=== PATIENT | female | born 1935 | race Caucasian/White ===

== ENCOUNTER 2016-07-24 22:25 | Emergency (ER) | payer OTHER, MEDICARE ==
[~2016-07-24] VITALS: Ht 160 cm; Wt 59.0 kg
--- NOTE | 2016-07-24 23:41 | ED DYSPNEA/ASTHMA COMPLAINT ---
History of Present Illness General Chief Complaint: Dyspnea (COPD, CHF, Other) Stated Complaint: DIFF BREATHING Source: patient Exam Limitations: no limitations Vital Signs & Intake/Output Vital Signs & Intake/Output Vital Signs Date Time Temp Pulse Resp B/P Pulse O2 O2 Flow FiO2 Ox Delivery Rate 07/25 0031 97.5 87 20 174/77 98 Nasal 1.0L Cannula 07/25 0027 97 Nasal 2.0L Cannula 07/24 2251 92 Room Air 07/24 2229 98.2 104 20 178/76 92 Room Air ED Intake and Output 07/25 0000 07/24 1200 Intake Total 0 Output Total Balance 0 Intake, Oral 0 Patient 130 lb Weight Allergies Coded Allergies: No Known Allergies (07/24/16) Triage Note: PT TO ED C/O PRODUCTIVE COUGH, FATIGUE FOR 4 DAYS. O2 SAT 92% ON RA IN TRIAGE. FORMER SMOKER. 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 Triage Nurses Notes Reviewed? yes HPI: Pt presents for eval of dypsnea and cough that began about 2-3 days ago. In addition she has been feeling a soreness in the chest but had a fever yesterday. She has also had a white cream phlegm production. She traveled up from [place] in mid June and states she just hasn't felt right since. She denies any leg pain or leg swelling or orthopnea. There are no known ill contacts and the patient denies travel outside the country. Symptoms worsened with exertion and nothing seems to make her feel better at this point. She is an ex smoker having quit in 1984. Past History Travel History Traveled to [place] past 21 day No Medical History Any Pertinent Medical History? see below for history Neurological: CVA, dementia Cardiovascular: hypertension Endocrine: hypothyroidism Surgical History Surgical History: non-contributory Psychosocial History What is your primary language Nepali Tobacco Use: Quit >30 days ago Family History Hx Contributory? No Review of Systems Review of Systems Constitutional: Reports: no symptoms. EENTM: Reports: no symptoms. Respiratory: Reports: see HPI. Cardiovascular: Reports: chest pain. GI: Reports: no symptoms. Genitourinary: Reports: no symptoms. Musculoskeletal: Reports: no symptoms. Skin: Reports: no symptoms. Neurological/Psychological: Reports: no symptoms. Hematologic/Endocrine: Reports: no symptoms. Immunologic/Allergic: Reports: no symptoms. All Other Systems: Reviewed and Negative Physical Exam Physical Exam Respiratory: see below Comments: Gen.: Well-nourished, well-developed, while to moderate respiratory distress. Head: Normocephalic, atraumatic. Eyes: Normal inspection bilaterally Ears: Normal inspection bilaterally Nose: Normal inspection Throat/mouth : Moist mucosa Neck: Supple, full range of motion, no goiter Heart: Regular rate and rhythm, no murmurs rubs or gallops Lungs: Globally decreased breath sounds with scattered wheezing and "groans" Chest: Nontender Back: Normal range of motion Abdomen: Soft, nontender, nondistended, normal bowel sounds Extremities: Normal range of motion grossly, equal radial pulses, no cyanosis clubbing or edema, calves nontender Neurologic: Cranial nerves grossly intact, speech is clear Skin: warm and dry Psychiatric: Calm, cooperative, no apparent delusions or hallucinations Core Measures ACS in differential dx? No Severe Sepsis Present: No Septic Shock Present: No Progress Differential Diagnosis: asthma, bronchitis, CHF, COPD, pneumonia Plan of Care: Orders Procedure Date/time Status Telemetry/Bpm Solution Architect 07/24 2328 Active TROPONIN LEVEL 07/24 2328 Complete MAGNESIUM 07/24 2328 Complete CBC WITHOUT DIFFERENTIAL 07/24 2328 Complete B-TYPE NATRIURETIC PEP (BNP) 07/24 2328 Complete BASIC METABOLIC PANEL 07/24 2328 Complete EKG 07/24 2328 Active Laboratory Tests 07/24/162346: CBC w Diff NO MAN DIFF REQ, RBC 4.28, MCV 89.0, MCH 29.4, RDW 13.7, MPV 10.6 H, Gran % 78.6 H, Lymphocytes % 11.1 L, Monocytes % 9.1, Eosinophils % 1.1, Basophils % 0.1, Absolute Granulocytes 5.0, Absolute Lymphocytes 0.7 L, Absolute Monocytes 0.6, Absolute Eosinophils 0.1, Absolute Basophils 0, PUBS MCHC 33.0 07/24/163: Anion Gap 8, Estimated GFR 53 L, BUN/Creatinine Ratio 21.0, Glucose 154 H, Calcium 9.7, Magnesium 1.7, Troponin I 0.03, Ldk-N-Ypsikybvviq Pept 689 H Diagnostic Imaging: Discussed w/RAD: Radiology Read. CXR Impression: PATIENT: REMY ZUNIGA PRESENT AGE: 81 PATIENT ACCOUNT NO: [id number] : 35 LOCATION: [facility] ORDERING PHYSICIAN: KAYLYN GUADALUPE MD SERVICE DATE: 07/24/16 EXAM TYPE: RAD - XRY-PORTABLE CHEST XRAY EXAMINATION: XR PORTABLE CHEST CLINICAL INFORMATION: CHF/COPD/ effusion. COMPARISON: None. TECHNIQUE: Portable view of the chest was obtained. FINDINGS: There is central vascular congestion without overt edema. No focal consolidation, pleural effusion, or pneumothorax. Cardiac silhouette size is normal. There are no acute osseous findings. IMPRESSION: Central vascular congestion without overt edema. No focal pneumonia. DICTATED BY: KAYLYN GREEN MD DATE/TIME DICTATED:07/25/1626 WATER SAFETY TEACHER:NARGIS DATE/TIME TRANSCRIBED:07/25/1626 CONFIDENTIAL, DO NOT COPY WITHOUT APPROPRIATE AUTHORIZATION. <Electronically signed in Other Vendor System> SIGNED BY: KAYLYN GREEN MD 07/25/1631 Initial ED EKG: NSR, rate (91), no ST T wave changes Comments: 07/25/2016 12:55:05 AM I have updated Remy on her test results. I have taken her off her oxygen and I will observe her over the next 15 minutes or so for any hypoxia. He is also somewhat tachycardic after her nebulizer treatment but her heart rate seems to be improving as well. Ultimately we will check an ambulatory pulse ox on her. She denies any known history of heart disease including congestive heart failure but her chest x-ray shows some increased vascular congestion. I will discuss the possibility of a short course of Lasix. 07/25/2016 2:30:48 AM Remy appears comfortable at this point with a normal oxygen saturation on room air. Her heart rate is now essentially normal as well. We will check an ambulatory pulse ox and unless she becomes hypoxic with ambulation I feel she is stable for discharge. she agrees. Departure Departure Disposition: HOME OR SELF CARE Condition: Stable Clinical Impression Primary Impression: Dyspnea Qualifiers: Dyspnea type: unspecified Qualified Code: R06.00 - Dyspnea, unspecified Referrals: PATIENT HAS NO PRIMARY CARE DR (PCP/Family) Additional Instructions: albuterol inhaler as needed for cough or trouble breathing. robitussin ac as needed for cough or cold symptoms. if you have a fever or productive cough, begin the Z Howie prescription. since your chest xray showed prominent venous pattern, take lasix for 2 days. potassium supplement to prevent low potassium. follow up with a primary care doctor (see MDs listed) or hotel attendant (dr banegas) arnaldo. return if any concerns or worsening. Departure Forms: Customer Survey General Discharge Information Prescriptions: Current Visit Scripts Albuterol Sulfate (Proair Hfa) 2-4 INH INH Q6P PRN cough or breathing #1 INHAL Azithromycin (Zithromax) 1 DP PO AD #6 TAB 2 the first day followed by 1 for days 2-5 Furosemide (Lasix) 1 TAB PO DAILY #2 TAB Potassium Chloride 1 TAB PO DAILY #4 TAB Robitussin AC (Guaifenesin-Codeine Syrup) 10 ML PO Q8 PRN COUGH/COLD SYMPTOMS #200 ML Critical Care Note Critical Care Note Critical Care Time: 30-74 min
[2016-07-25 00:08] LABS: ABSOLUTE BASOPHIL COUNT 0 /CUMM (0.0-0.2); ABSOLUTE EOSINOPHIL COUNT 0.1 /CUMM (0.0-0.7); ABSOLUTE LYMPH COUNT 0.7 /CUMM (1.2-3.4); ABSOLUTE MONOCYTE COUNT 0.6 /CUMM (0.10-0.60); BASOPHIL % 0.1 % (0.0-2.0); EOSINOPHIL % 1.1 % (0-5); GRANULOCYTE % 78.6 % (42.2-75.2); HEMATOCRIT 38.1 % (37-47); MEAN CORPUSCULAR HGB 29.4 PG (27.0-31.0); MEAN PLATELET VOLUME 10.6 FL (7.4-10.4); PLATELET COUNT 116 /CUMM (130-400); RBC DISTRIBUTION WIDTH 13.7 % (11.5-14.5); RED BLOOD CELL CT 4.28 /CUMM (4.20-5.40); WHITE BLOOD CELL COUNT 6.3 /CUMM (4.8-10.8)
--- NOTE | 2016-07-25 00:32 | RADIOLOGY REPORT ---
EXAMINATION: XR PORTABLE CHEST CLINICAL INFORMATION: CHF/COPD/effusion. COMPARISON: None. TECHNIQUE: Portable view of the chest was obtained. FINDINGS: There is central vascular congestion without overt edema. No focal consolidation, pleural effusion, or pneumothorax. Cardiac silhouette size is normal. There are no acute osseous findings. IMPRESSION: Central vascular congestion without overt edema. No focal pneumonia.
[2016-07-25] MEDS ORDERED: ZITHROMAX250 M2 PO (02:48)
[2016-07-25] MEDS ORDERED: LASIX20 M1 PO (02:48)
[2016-07-25] MEDS ORDERED: POTASSIUM CHLO20 ME2 PO (02:48)
[2016-07-25] MEDS ORDERED: PROAIR HFA8.5 GM INH (02:48)
[2016-07-25] MEDS ORDERED: GUAIFENESIN-COD10 ML PO (02:48)
[2016-07-25 03:17] VITALS: BP 168/74
== END 2016-07-25 03:19 ==
LOC: ERH 22:25
PROVIDERS: Emergency Medicine
DX: R06.00 Dyspnea, unspecified (principal); R07.89 Other chest pain; Z87.891 Personal history of nicotine dependence
CPT/HCPCS: 1263; 93005; 93010